=== PATIENT | female | born 1955 | race African-American/Black ===

== ENCOUNTER 2019-03-07 14:19 | Day surgery (SDC) | payer OTHER ==
[2019-03-04 09:44] VITALS: BMI 26.6
[~2019-03-07 14:19] MED LIST: BUPIVACAINE HCL/PF 0.5% (5 MG/ML) 30 ML VIAL IJ ONE; CEFAZOLIN 2 GM in DEXTROSE 5%-WATER - 100 ML IVPB ONE; DEXAMETHASONE SOD PHOSPHATE/PF 10 MG/ML SDV ONE; KETAMINE HCL 200 MG/20 ML VIAL ONE; LIDOCAINE 1%/EPI 1:100000 (20 ML MULTI DOSE VIAL) ONE; MIDAZOLAM HCL 2 MG/2 ML SINGLE DOSE VIAL ONE; ONDANSETRON 4 MG/2 ML VIAL IVPUSH PRN; PROPOFOL 20 ML ONE; THROMBIN (BOVINE) 5,000 UNIT VIAL TP ONE; THROMBIN (RECOMBINANT) 5,000 UNIT VIAL TP ONE; ePHEDrine SULFATE 50 MG/1 ML AMPULE ONE; oxyCODONE HCL 10 MG SUSTAINED ACTING TABLET PO STA; oxyCODONE HCL 5 MG TABLET PO PRN
[2019-03-07] MEDS ORDERED: ALBUTEROL SO4 8 GM HFA INHALER IH PRN (14:27)
[2019-03-07] MEDS ORDERED: LACTATED RINGERS SOLUTION 1,000 ML IV SCH (14:30)
[2019-03-07] MEDS ORDERED: ONDANSETRON 4 MG/2 ML VIAL IVPUSH PRN (14:30)
[2019-03-07] MEDS ORDERED: PROMETHAZINE HCL 25 MG/1 ML VIAL IVPUSH PRN (14:30)
--- NOTE | 2019-03-07 14:30 | OP ---
Operative Note - Note: Operative Date: 03/07/19 Pre-Operative Diagnosis: anterio cervical disectomy fusion of C3-C4 and C4-C5 Surgeon: Karlos Lan Shearing Shed Hand: Kamila Srinivasan Anesthesiologist/RIVER EXPEDITION GUIDE: Jennifer Gunter Anesthesia: General Estimated Blood Loss (mls): 20 Fluid Volume Replaced (mls): 1,200 Operative Report Dictated: Yes
--- NOTE | 2019-03-07 14:41 | OP ---
DATE OF OPERATION: 03/07/2019 PREOPERATIVE DIAGNOSIS: Cervical stenosis, C3-4, C4-5. POSTOPERATIVE DIAGNOSIS: Cervical stenosis, C3-4, C4-5. PROCEDURE PERFORMED: 1. Anterior cervical diskectomy and fusion, C3-4. 2. Anterior cervical diskectomy and fusion, C4-5. 3. Placement of instrumentation, C3 to C5. SURGEON: Karlos Lan MD LIBRARY SERVICES ASSISTANT: LAKHWINDER Christianson ESTIMATED BLOOD LOSS: 50 mL. IV FLUIDS: Per Anesthesia. ANESTHESIA: General/MCP block. COMPLICATIONS: There were none. DISPOSITION: Patient brought to PACU in stable condition. INDICATION FOR SURGERY: The patient is a 63-year-old female who has been suffering from pain from her neck down her arms. X-rays and MRI were completed, which noted that she had cervical stenosis at C3-4 and C4-5. She had gone through an exhaustive course of treatment for this, which included medications, physical therapy, as well as injections. Unfortunately, her pain continued to persist despite all this. At this point, risks, benefits, and alternatives were discussed and the patient consented to surgery. OPERATIVE NOTE: The patient was brought to the operating room by anesthesia staff. After appropriate patient identification was performed and general anesthesia was given, an MCP block was also given. The patient was positioned supine on the OR bed with her arms tucked at the sides. A shoulder roll was placed underneath the neck to extend her neck to the point that she could tolerate in the preoperative holding area. A needle was taped onto her neck to jessee off the C3-4 level. X-rays taken confirmed this was correct. The needle was removed and 10 mL of lidocaine with epinephrine was injected into her neck. At this time, her neck was prepped and draped in a sterile manner. At this point, a timeout was completed. A 2-inch incision was made on the left side of her neck. Dissection was carried down to the platysma. The platysma was cut in line with the skin incision. Next, the interval between the sternocleidomastoid and strap muscles was developed. Next, the interval between the carotid sheath and tracheal esophagus was developed. Peanuts were used to elevate off the prevertebral fascia. A needle was placed into the C3-4 disk. X-ray was taken to confirm this was correct. The needle was removed and a knife was used to incise the disk. A [place] pin was placed into the body of C3 and C5. Distraction was applied. Microscope applied. Using a series of pituitaries, Kerrisons, and curettes, a diskectomy was completed at C3-4 and C4-5. The endplates were decorticated at this time. Size 6 cages were placed in. Rasp was performed prior to that. A screw was placed into the body of C3, C4, and C5. AP and lateral x-rays confirmed the instrumentation in good position. [place] pins were removed. Final tightening was performed. The platysma was closed with 2-0 Vicryl suture. Skin was closed with 3-0 Monocryl suture. Dermabond was applied, Steri-Strips were applied, a sterile dressing was applied. Patient was placed supine on the OR bed, brought to the PACU in stable condition. Walt [id number]
[2019-03-07] MEDS ORDERED: ACETAMINOPHEN 1000 MG/100 ML VIAL (NON FORMULARY) IVPB ONE (15:00)
--- NOTE | 2019-03-07 16:51 | SURG ---
Surgery Radio Electrician Note Radio Electrician: Kamila Srinivasan PA-C Date of Service: 03/07/19 Diagnosis: cervical stenosis Procedure: anterior cervical discectomy fusion of C3-4 and C4-5 I was present for the entirety of the operative procedure. For further detail, please refer to operative report. Visit type - Case Type Case Type: Scheduled - Emergency Emergency Visit: No - New patient This patient is new to me today: Yes Date on this admission: 03/07/19
[2019-03-07] MEDS: oxyCODONE HCL 5 MG TABLET PO PRN (19:00)
[2019-03-07] MEDS: diazePAM 2 MG TABLET PO SCH (19:00)
[2019-03-07] MEDS: DEXAMETHASONE SOD PHOSPHATE 4 MG/1 ML VIAL IVPB SCH ×2 (19:00→23:23)
[2019-03-07] MEDS: CEFAZOLIN 1 GM/D5W 1 GRAM/50 ML BAG IVPB SCH (20:28)
[2019-03-07] MEDS: ACETAMINOPHEN 325 MG TABLET (FP) PO SCH (21:28)
[2019-03-08] MEDS: oxyCODONE HCL 5 MG TABLET PO PRN ×2 (00:31→06:08)
[2019-03-08] MEDS: CEFAZOLIN 1 GM/D5W 1 GRAM/50 ML BAG IVPB SCH (03:00)
[2019-03-08] MEDS: ACETAMINOPHEN 325 MG TABLET (FP) PO SCH ×2 (03:48→10:46)
[2019-03-08] MEDS: DEXAMETHASONE SOD PHOSPHATE 4 MG/1 ML VIAL IVPB SCH ×2 (05:51→10:45)
[2019-03-08] MEDS ORDERED: BENZOCAINE/MENTH/CETYLPYRD CL 1 EACH LOZENGE MM PRN (07:59)
--- NOTE | 2019-03-08 08:00 | DS ---
Physical Exam: SUBJECTIVE: Patient seen and examined this am no difficulties with swallowing, tolerated regular diet. NO CP/SOB. OOB and ambulated. Left arm pain improved. OBJECTIVE: Vital Signs Temperature 98.4 F 03/08/19 02:00 Pulse Rate 78 03/08/19 02:00 Respiratory Rate 18 03/08/19 02:00 Blood Pressure 142/73 03/08/19 02:00 O2 Sat by Pulse Oximetry (%) 96 03/08/19 02:05 PHYSICAL EXAM GENERAL: The patient is awake, alert, and fully oriented, in no acute distress. NECK: Trachea midline, dressing c/d/i, no evidence of hematoma. Neck remains soft. Soft collar in place. No stridor LUNGS: Breath sounds equal, clear to auscultation bilaterally HEART: Regular rate and rhythm. ABDOMEN: Soft, nontender, nondistended. EXTREMITIES:No swellin gor tenderness noted b/l. NEUROLOGICAL: Normal speech, gait not observed. upper arm flexion/extiion and db2 developer strength equal b/l and 5/5. LABS HOSPITAL COURSE: The patient was admitted to the Med-Surg Unit after an elective repair of their Cervcial stenosis. Now, s/p C3-4 and C5-6 ACDF. The day of surgery, the patient ambulated the hallways with assistance. Narcotic and non-narcotic pain management control was achieved with an oral and IV approach. An xray was obtained and confirmed hardware placement at C3-4 and C4-5, no fractures or dislocations. Christina-operative IV ABX were administered. DVT prophylaxis was achieved with SCDs and early ambulation. The patient ambulated with Physical Therapy and no services were recommended upon discharge. Narcotic scripts and or muscle relaxants were checked with [facility] SENIOR PLANNING ANALYST prior to escibe. The discharge instructions and an oral pain management plan were reviewed with the patient. All questions answered. Above plan discussed with Dr. Lan and agreed. Date of Admission:03/07/19 Date of Discharge: 03/08/19 Minutes to complete discharge: 20 <Kamila Srinivasan - Last Filed: 03/08/19 14:52> Physical Exam: SUBJECTIVE: Patient seen and examined OBJECTIVE: Vital Signs Temperature 98.6 F 03/08/19 10:00 Pulse Rate 85 03/08/19 10:00 Respiratory Rate 20 03/08/19 10:00 Blood Pressure 139/75 03/08/19 10:00 O2 Sat by Pulse Oximetry (%) 96 03/08/19 09:00 PHYSICAL EXAM GENERAL: The patient is awake, alert, and fully oriented, in no acute distress. HEAD: Normal with no signs of trauma. EYES: PERRL, extraocular movements intact, sclera anicteric, conjunctiva clear. ENT: Ears normal, nares patent, oropharynx clear without exudates, moist mucous membranes. NECK: Trachea midline, full range of motion, supple. LUNGS: Breath sounds equal, clear to auscultation bilaterally, no wheezes, no crackles, no accessory muscle use. HEART: Regular rate and rhythm, S1, S2 without murmur, rub or gallop. ABDOMEN: Soft, nontender, nondistended, normoactive bowel sounds, no guarding, no rebound, no hepatosplenomegaly, no masses. EXTREMITIES: 2+ pulses, warm, well-perfused, no edema. NEUROLOGICAL: Cranial nerves II through XII grossly intact. Normal speech, gait not observed. PSYCH: Normal mood, normal affect. SKIN: Warm, dry, normal turgor, no rashes or lesions noted. LABS HOSPITAL COURSE: Date of Admission:03/07/19 Date of Discharge: 03/11/19 Patient seen and examined Agree with above D/C Planning <Karlos Lan - Last Filed: 03/11/19 10:35> Visit type - Case Type Case Type: Scheduled - Emergency Emergency Visit: No - New patient This patient is new to me today: No <Kamila Srinivasan - Last Filed: 03/08/19 14:52>
[2019-03-08 08:07] VITALS: TEMP 98.6
[2019-03-08] MEDS ORDERED: amLODIPine BESYLATE 10 MG TABLET (FP) PO SCH (10:00)
[2019-03-08] MEDS ORDERED: SERTRALINE HCL 50 MG TABLET (FP) PO SCH (10:00)
--- NOTE | 2019-03-08 10:25 | PN ---
Progress Note (short form) - Note Progress Note: ANESTHESIA POSTOP 63 YO FEMALE ACDF, GETA WITH PNB Patient resting in bed eating breakfast. Pain adequately controlled. No n/v. VSS, Afebrile Continue current care. Encouraged IS and ambulation per orders.
[2019-03-08] MEDS: diazePAM 2 MG TABLET PO SCH (10:46)
[2019-03-08 10:49] VITALS: BP 139/75; PULSE 85
--- NOTE | 2019-03-11 16:48 | PATH ---
Surgical Pathology Report Patient Name: YOUNG MCKEON Med. Rec. #: [id number] /Age/Gender: 1955 (Age: 63) / F Account: [id number] Location: [facility] MED-SURG Taken: 03/07/2019 Received: 03/07/2019 Reported: 03/11/2019 Physicians: Karlos Lan M.D. Specimen(s) Received DISC C3-C5 Clinical History Cervical stenosis Final Diagnosis DISC C3-C5, DISCECTOMY: FRAGMENTS OF BONE AND CARTILAGE WITH FOCAL DEGENERATIVE CHANGE. Electronically Signed Júnior Markham M.D. Gross Description Received in formalin labeled "C3-5 disc," is a 2.4 x 1.8 x 0.3 cm aggregate of lee fragments of fibrocartilaginous tissue. The formalin is filtered and the specimen is entirely submitted in one cassette. /03/08/201903/08/2019
== END 2019-03-08 11:55 | disposition home or self-care (01) ==
LOC: FM/S 14:19 → FASUSAT 14:19 → FASU 14:19 → FASUSAT 03-08 11:55
PROVIDERS: ATTEND Orthopaedic Surgery Orthopaedic Surgery of the Spine
PROC: 0RG10A0 Fusion of Cervical Vertebral Joint with Interbody Fusion Device, Anterior Approach, Anterior Column, Open Approach (ICD-10-PCS; 2019-03-07)
PROC: 0RG10K0 Fusion of Cervical Vertebral Joint with Nonautologous Tissue Substitute, Anterior Approach, Anterior Column, Open Approach (ICD-10-PCS; 2019-03-07)
PROC: 0RB30ZZ Excision of Cervical Vertebral Disc, Open Approach (ICD-10-PCS; principal; 2019-03-07 12:33)
DX: M48.02 Spinal stenosis, cervical region (principal)
CPT/HCPCS: 22551; 22552; 22845; 22853; C1889; 72050-TC-FY; 88304-TC; 94760; 97116-GP; 97162-GP; J0131